=== PATIENT | male | born 1990 | race African-American/Black ===

== ENCOUNTER 2024-04-26 19:15 | Emergency (ER) | payer MEDICARE, SELFPAY ==
--- NOTE | ~2024-04-26 | XR_ITS ---
EXAMINATION: XR CHEST CLINICAL INFORMATION: Cough COMPARISON: None available. TECHNIQUE: Frontal view of the chest was obtained. FINDINGS: No significant abnormality is noted involving the heart, lungs, mediastinum, bony thorax or soft tissues. XR/XR chest 1V IMPRESSION: Unremarkable examination. Electronically signed by: Jennifer Awad MD 04/26/2024 08:[address] [facility]
[2024-04-26 19:51] VITALS: BP 156/87; PULSE 80; RESP 16; TEMP 36.8; O2SAT 98; BMI 44.4
--- NOTE | 2024-04-26 20:01 | ED_ITS ---
HPI - General Adult General Chief complaint: General Medical Stated complaint: SOB, cough Time Seen by Provider: 04/26/24 22:44 Source: patient, RN notes reviewed and old records reviewed Mode of arrival: ambulatory Limitations: no limitations History of Present Illness ED Provider: Grisel SALINAS narrative: 33-year-old male presents for evaluation of coughing, shortness of breath. He reports that he started to get sick about 4 days ago at work. He works the night auditor at a custodial. He has not had any vomiting, denies any chest pain. He felt as though he was wheezing with ?crackles in my lungs. ? He did not receive his flu vaccination this year The patient reports that he was recently diagnosed with sleep apnea but is awaiting his CPAP machine. Related Data Allergies Allergy/AdvReac Type Severity Reaction Status Date / Time No Known Allergies Allergy Verified 04/26/24 19:53 Review of Systems 2 Constitutional: Constitutional: Denies body ache(s), Denies chills, Denies fever(s) and Reports malaise Eyes: Eyes: Denies blurry vision ENT: Denies vertigo and Denies sore throat Cardiovascular: Cardiovascular: Denies chest pain and Reports dyspnea Respiratory: Respiratory: Reports cough, Reports dyspnea and Reports wheezing Gastrointestinal: Gastrointestinal: Denies abdominal pain, Denies nausea and Denies vomiting Musculoskeletal: Musculoskeletal: Denies back pain Integumentary/Breasts: Skin/Breast: Denies rash Neurologic: Denies vertigo Allergic/Immunologic: Allergic/Immunologic: Reports wheezing PMFSH Social History Social History Smoked in Last 30 Days: No Use of substances other than those prescribed or required for medical reasons: No Advance Directives: No Advance Directives Information Provided: No Do you have a plan to hurt others: No Plan Physical Exam ED Vital Signs: Vital Signs - 24 hr 04/26/24 19:51 04/26/24 22:05 04/26/24 23:13 Temperature 98.3 F 98.1 F 98.1 F Pulse Rate 80 76 76 Respiratory Rate 16 16 16 Blood Pressure 156/87 H 135/85 135/85 Pulse Oximetry 98 98 98 Oxygen Delivery Method Room Air Room Air Room Air BMI result Body Mass Index 44.4 Const General: healthy appearing, comfortable, no acute distress, alert and awake Nutritional Appearance: well nourished Orientation/consciousness: patient oriented x3 HENMT Head: Yes normocephalic and Yes atraumatic Eyes Eyelids: Yes eyelids normal Conjunctivae: conjunctivae normal Sclerae: sclerae normal Corneas: corneas normal Pupils: Equal, round and reactive pupils present EOM: EOMs intact bilaterally Neck Neck: Yes full ROM Resp Effort & Inspection: normal respiratory effort, able to speak in complete sentences, no audible wheezes and not labored Auscultation: clear to auscultation bilaterally Cardio Rate: regular rate Rhythm: regular rhythm GI Inspection: No distended Palpation (GI): Soft to palpation, not firm, nontender, no guarding and not rigid Skin General skin exam: elasticity normal Neuro General: patient oriented x3 Cranial nerves: Yes Equal, round and reactive pupils present and Yes Bilaterally intact EOM present Cognition (Neuro): normal cognition Extrem Other: Moving all extremities well without any obvious deformities Course Course Course Narrative: RME; patient presents to ED for coughing with cracking sign from loss. Vital signs stable. SARs strep x-ray ordered Medical Decision Making Medical Decision Making [facility] Narrative: 33-year-old male who is otherwise healthy presents for evaluation of viral symptoms. He did test positive for influenza a, his vital signs have been stable, chest x-ray clear. His labs are reassuring, his CO2 is slightly elevated which is likely due to his recently diagnosed sleep apnea. He does not have a CPAP machine yet. The patient is well outside the window for Tamiflu treatment as his symptoms started 4 days ago. He will be discharged with symptomatic treatment only Differential Diagnosis Differential Diagnoses: The differential diagnosis associated with the presentation includes Influenza Upper respiratory infection Pneumonia Bronchitis COVID-19 Lab Data [facility] Lab Attestation statement: I reviewed the patient's lab results. No leukocytosis or anemia. Normal platelet count. No electrolyte abnormalities. CO2 slightly elevated to 30, as above likely related to sleep apnea. Random glucose elevated to 116, the patient is not a diabetic 04/26/24 20:55 04/26/24 20:55 Labs: Lab Results 04/26/24 Range/Units 20:55 WBC 6.1 (4.8-10.8) X10*3/uL RBC 5.71 (4.60-5.80) X10*6/uL Hgb 14.4 (14.0-18.0) g/dl Hct 45.2 (42.0-52.0) % MCV 79.2 L (80.0-98.0) fL MCH 25.2 L (27.0-33.0) pg MCHC 31.9 (31.0-36.0) g/dl RDW 13.5 (11.0-16.0) % Plt Count 261 (160-400) X10*3/uL MPV 9.4 (9.4-12.4) fL Immature Gran % (Auto) 0.7 H (0.0-0.4) % Neut % (Auto) 49.6 (45-73) % Lymph % (Auto) 37.0 (20-40) % [place] % (Auto) 8.6 (2-11) % Eos % (Auto) 3.6 (0-4) % Baso % (Auto) 0.5 (0-2) % Lymph # (Auto) 2.2 (1.2-4.9) X10*3/uL [place] # (Auto) 0.5 (0.1-1.2) X10*3/uL Eos # (Auto) 0.2 (0.0-0.4) X10*3/uL Baso # (Auto) 0.0 (0.0-0.2) X10*3/uL Abs Immat Gran (auto) 0.04 H (0.00-0.03) X10*3/uL Absolute Neuts (auto) 3.0 (2.0-8.3) x10*3/uL Absolute Nucleated RBC 0.000 (0.0-0.012) X10*3/uL Nucleated RBC % (auto) 0.0 (0.0-0.2) /100WBC Sodium 140 (135-145) mmol/L Potassium 4.4 (3.3-5.1) mmol/L Chloride 104 (96-108) mmol/L Carbon Dioxide 30 H (22-29) mmol/L Anion Gap 10 L (12-20) BUN 13 (9-16) mg/dL Creatinine 0.86 (0.5-1.4) mg/dL Estim Creat Clear Calc 179.5 Estimated GFR > 60 Random Glucose 116 H (60-115) mg/dL Calcium 9.7 (8.4-10.2) mg/dL Total Bilirubin 0.3 (0.0-1.0) mg/dL AST 18 (5-37) U/L ALT 32 (0-40) U/L Alkaline Phosphatase 83 (39-117) U/L Total Protein 8.0 (6.5-8.0) g/dL Albumin 4.4 (3.5-5.0) g/dL Influenza Type A (PCR) NEGATIVE (Negative) Influenza Type B (PCR) POSITIVE A (Negative) RSV RNA Qual (PCR) NEGATIVE (Negative) SARS-CoV-2 RNA (RT-PCR) NEGATIVE (Negative) Independent Interpretation I performed an independent interpretation of an: Plain X-Ray Interpretation: FINDINGS: No significant abnormality is noted involving the heart, lungs, mediastinum, bony thorax or soft tissues. XR/XR chest 1V IMPRESSION: Unremarkable examination. Electronically signed by: Jennifer Awad MD 04/26/2024 08:46 PM [facility] [place] Discharge Plan Discharge Clinical Impression: Influenza B Patient Disposition: Home, Self-Care Instructions: Influenza (ED) Additional Instructions: Your workup in the ER today was reassuring. You did test positive for influenza. Your blood work was reassuring, your chest x-ray was clear. Hydrate well. Use Motrin/Tylenol for headaches, body aches, fevers Stand Alone Forms: Work/School Release Interventions: ED Discharge Assessment Last Done: 04/26/24 23:13 Discharge Date/Time: 04/26/24 23:13 Print Language: Cypriot
[2024-04-26 21:05] LABS: MANUAL DIFF FLAG NO
[2024-04-26 21:10] LABS: Basophils Percent Auto 0.5 % (0-2); Eosinophils Absolute Auto 0.2 X10*3/uL (0.0-0.4); Eosinophils Percent Auto 3.6 % (0-4); Hematocrit 45.2 % (42.0-52.0); Hemoglobin 14.4 g/dl (14.0-18.0); Imm Gran Abs Auto 0.04 X10*3/uL (0.00-0.03); Imm Gran Pct Auto 0.7 % (0.0-0.4); Lymphocytes Absolute Auto 2.2 X10*3/uL (1.2-4.9); Mean Corpuscular HGB Conc 31.9 g/dl (31.0-36.0); Mean Corpuscular Hemoglobin 25.2 pg (27.0-33.0); Mean Corpuscular Volume 79.2 fL (80.0-98.0); Mean Platelet Volume 9.4 fL (9.4-12.4); Monocytes Absolute Auto 0.5 X10*3/uL (0.1-1.2); Monocytes Percent Auto 8.6 % (2-11); Neutrophils Percent Auto 49.6 % (45-73); Platelet Count 261 X10*3/uL (160-400); Red Blood Count 5.71 X10*6/uL (4.60-5.80); Red Cell Distribution Width 13.5 % (11.0-16.0); White Blood Count 6.1 X10*3/uL (4.8-10.8)
--- NOTE | 2024-04-26 21:26 | PC.NURSE ---
Patient arrived to ED 20 from waiting room. Awaiting primary ED provider evaluation.
[2024-04-26 21:39] LABS: Alanine Aminotransferase 32 U/L (0-40); Albumin Level 4.4 g/dL (3.5-5.0); Alkaline Phosphatase 83 U/L (39-117); Anion Gap 10 (12-20); Aspartate Amino Transferase 18 U/L (5-37); Bilirubin Total 0.3 mg/dL (0.0-1.0); Blood Urea Nitrogen 13 mg/dL (9-16); Calcium 9.7 mg/dL (8.4-10.2); Carbon Dioxide 30 mmol/L (22-29); Chloride 104 mmol/L (96-108); Creatinine Clr Calc Pharmacy 179.5; Estimated Glomerular Filt Rate > 60; Glucose Random 116 mg/dL (60-115); Potassium 4.4 mmol/L (3.3-5.1); Sodium 140 mmol/L (135-145)
[2024-04-26 21:48] LABS: Influenza A PCR NEGATIVE (Negative); Influenza B PCR POSITIVE (Negative); Resp Syncy Virus RNA Qual PCR NEGATIVE (Negative); SARS COV2 PCR INHOUSE NEGATIVE (Negative)
[2024-04-26 22:05] VITALS: BP 135/85; PULSE 76; RESP 16; TEMP 36.7; O2SAT 98
--- NOTE | 2024-04-26 22:48 | PC.NURSE ---
Patient is positive for Influenza B. Precautions in place.
[2024-04-26 23:13] VITALS: BP 135/85; PULSE 76; RESP 16; TEMP 36.7; O2SAT 98
== END 2024-04-26 23:13 | disposition home or self-care (01) ==
PROVIDERS: Emergency Provider Emergency Medicine
DX: J10.1 Influenza due to other identified influenza virus with other respiratory manifestations (principal); R05.9 Cough, unspecified; R06.02 Shortness of breath; Z03.818 Encounter for observation for suspected exposure to other biological agents ruled out
CPT/HCPCS: 0241U; 36415; 71045; 80053; 85025; 99283; 99284